=== PATIENT | male | born 1950 | race Caucasian/White ===

== ENCOUNTER → 2020-12-04 10:54 | Outpatient (CLI) | payer MEDICARE, OTHER, SELFPAY ==
[2020-12-04 21:04] LABS: Add Manual Diff / Slide Review NO; Basophils Absolute Auto 0 /uL (0-100); Basophils Percent Auto 0.6 % (0-2); Eosinophils Absolute Auto 100 /uL (0-450); Eosinophils Percent Auto 2.1 % (2-4); Hemoglobin 14.1 g/dL (13.5-17.5); Lymphocytes Absolute Auto 1500 /uL (1100-4500); Lymphocytes Percent Auto 28.9 % (25-40); Mean Corpuscular Hemoglobin 28.9 PG (26-34); Mean Corpuscular Volume 90.4 fL (80-100); Monocytes Absolute Auto 600 /uL (0-900); Monocytes Percent Auto 11.1 % (3-14); Neutrophils Absolute Auto 3000 /uL (1500-7000); Neutrophils Percent Auto 57.3 % (50-75); Platelet Count 152 X10^3/uL (150-400); Red Blood Cell Count 4.86 X10^6/uL (4.5-5.9); White Blood Cell Count 5.2 X10^3/uL (4.5-11.0)
[2020-12-05 03:20] LABS: Alanine Aminotransferase 32 IU/L (<50); Albumin 4.1 g/dL (3.5-5.0); Albumin Globulin Ratio 1.5 (1.0-2.8); Alkaline Phosphatase 50 U/L (38-126); Aspartate Aminotransferase 85 IU/L (17-59); BUN Creatinine Ratio 17.4 (6-22); Bilirubin Total 0.3 mg/dL (0.2-1.3); Blood Urea Nitrogen 25 mg/dL (9-20); Calcium 9.6 mg/dL (8.4-10.2); Carbon Dioxide 30 mmol/L (22-32); Chloride 102 mmol/L (98-107); Estimated Glomerular Filt Rate 48.8 mL/min (>60); Globulin 2.7 g/dL (1.7-4.1); Glucose 77 mg/dL (80-110); HEMOLYSIS < 15 (0-50); Potassium 4.4 mmol/L (3.4-5.1); Sodium 138 mmol/L (137-145); Total Protein 6.8 g/dL (6.3-8.2)
[2020-12-05 03:51] LABS: Cortisol Random 9.26 ug/dL
[2020-12-07 21:14] LABS: Estradiol, Sensitive 17.9 pg/mL (8.0-35.0)
[2020-12-11 08:36] LABS: Testosterone Free 24.34 ng/dL (5.00-21.00); Testosterone Total 811.3 ng/dL (264.0-916.0)
[2020-12-17 11:29] LABS: Matrix metalloprot 9 295 ng/mL (.)
== END ==
PROVIDERS: Family Provider Family Medicine; PCP Naturopath; Visit Provider Naturopath
DX: C90.00 Multiple myeloma not having achieved remission (principal); D64.9 Anemia, unspecified; R79.89 Other specified abnormal findings of blood chemistry; Z94.84 Stem cells transplant status
CPT/HCPCS: 80053; 82533; 82670; 82679; 82777; 83520; 84402; 84403; 84588; 85025

== ENCOUNTER → 2020-12-05 15:38 | Outpatient (CLI) | payer MEDICARE, OTHER, SELFPAY ==
[2020-12-09 13:09] LABS: Zinc,RBC 1717 ug/dL (878-1660)
== END ==
PROVIDERS: Family Provider Family Medicine; Visit Provider Naturopath
DX: C90.00 Multiple myeloma not having achieved remission (principal)
CPT/HCPCS: 84630

== ENCOUNTER → 2021-02-14 09:11 | Outpatient (CLI) | payer MEDICARE, OTHER, SELFPAY ==
[2021-02-14 19:44] LABS: Add Manual Diff / Slide Review NO; Basophils Absolute Auto 0 /uL (0-100); Basophils Percent Auto 0.2 % (0-2); Eosinophils Absolute Auto 100 /uL (0-450); Eosinophils Percent Auto 2.7 % (2-4); Hematocrit 45.1 % (41-53); Hemoglobin 14.7 g/dL (13.5-17.5); Lymphocytes Absolute Auto 2000 /uL (1100-4500); Lymphocytes Percent Auto 40.4 % (25-40); Mean Corpuscular HGB Conc 32.5 % (30-36); Mean Corpuscular Hemoglobin 29.2 PG (26-34); Mean Corpuscular Volume 89.8 fL (80-100); Monocytes Absolute Auto 400 /uL (0-900); Monocytes Percent Auto 7.4 % (3-14); Neutrophils Absolute Auto 2500 /uL (1500-7000); Neutrophils Percent Auto 49.3 % (50-75); Platelet Count 168 X10^3/uL (150-400); Red Blood Cell Count 5.02 X10^6/uL (4.5-5.9)
[2021-02-14 19:52] LABS: Alanine Aminotransferase 48 IU/L (<50); Albumin 4.1 g/dL (3.5-5.0); Albumin Globulin Ratio 1.7 (1.0-2.8); Alkaline Phosphatase 47 U/L (38-126); Aspartate Aminotransferase 44 IU/L (17-59); BUN Creatinine Ratio 13.3 (6-22); Bilirubin Total 0.4 mg/dL (0.2-1.3); Blood Urea Nitrogen 20 mg/dL (9-20); Calcium 9.3 mg/dL (8.4-10.2); Carbon Dioxide 27 mmol/L (22-32); Chloride 103 mmol/L (98-107); Estimated Glomerular Filt Rate 46.5 mL/min (>60); Globulin 2.4 g/dL (1.7-4.1); Glucose 82 mg/dL (80-110); HEMOLYSIS < 15 (0-50); Sodium 137 mmol/L (137-145); Total Protein 6.5 g/dL (6.3-8.2)
[2021-02-18 07:14] LABS: Cystatin C 1.17 mg/L (0.62-1.16)
[2021-02-19 11:18] LABS: Estradiol, Sensitive 32.5 pg/mL (8.0-35.0)
[2021-02-20 17:08] LABS: Percent Free Testosterone 3.65 % (1.50-4.20); Testosterone Free 41.46 ng/dL (5.00-21.00); Testosterone Total 1135.9 ng/dL (264.0-916.0)
[2021-02-24 11:28] LABS: Galectin -3 16.5
== END ==
PROVIDERS: Naturopath; Family Provider Family Medicine; PCP Physician Assistant
DX: E29.1 Testicular hypofunction (principal); R79.89 Other specified abnormal findings of blood chemistry; R53.83 Other fatigue; N40.1 Benign prostatic hyperplasia with lower urinary tract symptoms; R53.0 Neoplastic (malignant) related fatigue
CPT/HCPCS: 80053; 82610; 82670; 82679; 82777; 84402; 84403; 85025

== ENCOUNTER → 2021-07-04 09:27 | Outpatient (CLI) | payer MEDICARE, OTHER, SELFPAY ==
[2021-07-04 19:44] LABS: Add Manual Diff / Slide Review NO; Basophils Absolute Auto 0 /uL (0-100); Basophils Percent Auto 0.4 % (0-2); Eosinophils Absolute Auto 100 /uL (0-450); Eosinophils Percent Auto 2.8 % (2-4); Hematocrit 46.7 % (41-53); Hemoglobin 15.2 g/dL (13.5-17.5); Lymphocytes Absolute Auto 1700 /uL (1100-4500); Lymphocytes Percent Auto 35.8 % (25-40); Mean Corpuscular HGB Conc 32.6 % (30-36); Mean Corpuscular Hemoglobin 29.1 PG (26-34); Mean Corpuscular Volume 89.3 fL (80-100); Monocytes Absolute Auto 500 /uL (0-900); Monocytes Percent Auto 10.1 % (3-14); Neutrophils Absolute Auto 2400 /uL (1500-7000); Neutrophils Percent Auto 50.9 % (50-75); Platelet Count 176 X10^3/uL (150-400); Red Blood Cell Count 5.23 X10^6/uL (4.5-5.9); Red Cell Distribution Width 14.9 % (11.6-14.8); White Blood Cell Count 4.7 X10^3/uL (4.5-11.0)
[2021-07-04 20:01] LABS: Alanine Aminotransferase 26 IU/L (<50); Albumin 4.4 g/dL (3.5-5.0); Albumin Globulin Ratio 1.6 (1.0-2.8); Alkaline Phosphatase 44 U/L (38-126); Aspartate Aminotransferase 31 IU/L (17-59); BUN Creatinine Ratio 15.2 (6-22); Bilirubin Total 0.4 mg/dL (0.2-1.3); Blood Urea Nitrogen 21 mg/dL (9-20); Calcium 9.8 mg/dL (8.4-10.2); Carbon Dioxide 32 mmol/L (22-32); Chloride 100 mmol/L (98-107); Estimated Glomerular Filt Rate 51.1 mL/min (>60); Globulin 2.7 g/dL (1.7-4.1); Glucose 51 mg/dL (80-110); HEMOLYSIS 17 (0-50); Potassium 4.4 mmol/L (3.4-5.1); Sodium 140 mmol/L (137-145); Total Protein 7.1 g/dL (6.3-8.2)
[2021-07-08 10:22] LABS: PSA Free % 46.1 % (.); PSA, Total 1.8 ng/mL (0.0-4.0)
[2021-07-10 14:45] LABS: Galectin -3 16.8
[2021-07-10 15:01] LABS: Percent Free Testosterone 2.84 % (1.50-4.20); Testosterone Free 21.77 ng/dL (5.00-21.00); Testosterone Total 766.4 ng/dL (264.0-916.0)
[2021-07-11 05:24] LABS: Estradiol, Sensitive 31.3 pg/mL (8.0-35.0)
== END ==
PROVIDERS: Naturopath; Family Provider Family Medicine; PCP Physician Assistant
DX: E29.1 Testicular hypofunction (principal); G47.00 Insomnia, unspecified; N40.1 Benign prostatic hyperplasia with lower urinary tract symptoms; R53.83 Other fatigue; R53.0 Neoplastic (malignant) related fatigue; E34.9 Endocrine disorder, unspecified; R20.3 Hyperesthesia; E27.40 Unspecified adrenocortical insufficiency; G62.9 Polyneuropathy, unspecified; J30.2 Other seasonal allergic rhinitis; R68.82 Decreased libido; C90.01 Multiple myeloma in remission
CPT/HCPCS: 80053; 82670; 82679; 82777; 84153; 84154; 84402; 84403; 85025

== ENCOUNTER → 2021-07-25 12:07 | Outpatient (CLI) | payer MEDICARE, OTHER, SELFPAY ==
[2021-07-25 18:37] LABS: Add Manual Diff / Slide Review NO; Basophils Absolute Auto 100 /uL (0-100); Eosinophils Absolute Auto 100 /uL (0-450); Hematocrit 40.1 % (41-53); Hemoglobin 13.6 g/dL (13.5-17.5); Lymphocytes Absolute Auto 1700 /uL (1100-4500); Lymphocytes Percent Auto 33.6 % (25-40); Mean Corpuscular HGB Conc 33.9 % (30-36); Mean Corpuscular Hemoglobin 29.8 PG (26-34); Mean Corpuscular Volume 87.9 fL (80-100); Monocytes Absolute Auto 700 /uL (0-900); Monocytes Percent Auto 13.5 % (3-14); Neutrophils Absolute Auto 2500 /uL (1500-7000); Neutrophils Percent Auto 49.9 % (50-75); Platelet Count 139 X10^3/uL (150-400); Red Blood Cell Count 4.56 X10^6/uL (4.5-5.9); Red Cell Distribution Width 14.3 % (11.6-14.8); White Blood Cell Count 5.1 X10^3/uL (4.5-11.0)
[2021-07-25 18:57] LABS: Alanine Aminotransferase 18 IU/L (<50); Albumin 3.8 g/dL (3.5-5.0); Albumin Globulin Ratio 1.7 (1.0-2.8); Alkaline Phosphatase 37 U/L (38-126); Aspartate Aminotransferase 25 IU/L (17-59); Bilirubin Total 0.4 mg/dL (0.2-1.3); Blood Urea Nitrogen 17 mg/dL (9-20); Calcium 8.9 mg/dL (8.4-10.2); Carbon Dioxide 32 mmol/L (22-32); Chloride 95 mmol/L (98-107); Estimated Glomerular Filt Rate 59.5 mL/min (>60); Globulin 2.3 g/dL (1.7-4.1); Glucose 112 mg/dL (80-110); HEMOLYSIS < 15 (0-50); Sodium 131 mmol/L (137-145); Total Protein 6.1 g/dL (6.3-8.2)
[2021-07-27 10:35] LABS: IGA 34 mg/dL (61-437); IGG 666 mg/dL (603-1613); IGM 45 mg/dL (20-172)
[2021-07-28 17:09] LABS: Free Kappa Lt Chains, Serum 14.6 mg/L (3.3-19.4); Free Lambda Lt Chains,Serum 9.1 mg/L (5.7-26.3)
[2021-07-29 15:43] LABS: Albumin 3.6 g/dL (2.9-4.4); Alpha-1-Globulin 0.2 g/dL (0.0-0.4); Alpha-2-Globulin 0.6 g/dL (0.4-1.0); Gamma Globulin 0.6 g/dL (0.4-1.8); Globulin Total 2.3 g/dL (2.2-3.9); Protein, Total 5.9 g/dL (6.0-8.5)
== END ==
PROVIDERS: Family Provider Family Medicine; PCP Physician Assistant; Visit Provider Internal Medicine
DX: C90.00 Multiple myeloma not having achieved remission (principal)
CPT/HCPCS: 80053; 82784; 83883; 84155; 84165; 85025

== ENCOUNTER → 2021-08-04 12:25 | Outpatient (CLI) | payer MEDICARE, OTHER, SELFPAY ==
[2021-08-04 19:26] LABS: Cholesterol 219 mg/dL (140-199); HDL Cholesterol 44 mg/dL (40-60); LDL Cholesterol Calculated 164 mg/dL (<100); Triglycerides 54 mg/dL (35-150)
== END ==
PROVIDERS: Family Provider Family Medicine; PCP Family Medicine; Visit Provider Physician Assistant
DX: H02.60 Xanthelasma of unspecified eye, unspecified eyelid (principal)
CPT/HCPCS: 80061

== ENCOUNTER → 2022-05-13 09:53 | Outpatient (CLI) | payer MEDICARE, OTHER, SELFPAY ==
[2022-05-13 22:44] LABS: Free T3, Triiodothyronine Free 4.99 pg/mL (2.77-5.27)
[2022-05-13 22:57] LABS: Thyroid Stimulating Hormone 0.767 uIU/mL (0.47-4.68)
[2022-05-14 22:38] LABS: Triiodothyronine T3 Total 108 ng/dL (71-180)
[2022-05-19 17:45] LABS: Triiodothyronine T3 Reverse 15.3 ng/dL (9.2-24.1)
== END ==
PROVIDERS: Family Provider Family Medicine; PCP Family Medicine
DX: D64.9 Anemia, unspecified (principal); R53.83 Other fatigue
CPT/HCPCS: 84439; 84443; 84480; 84481; 84482

== ENCOUNTER → 2022-12-03 14:38 | Outpatient (CLI) | payer MEDICARE, OTHER, SELFPAY ==
[2022-12-03 20:28] LABS: Add Manual Diff / Slide Review NO; Basophils Absolute Auto 100 /uL (0-100); Basophils Percent Auto 0.9 % (0-2); Eosinophils Absolute Auto 100 /uL (0-450); Eosinophils Percent Auto 1.6 % (2-4); Hematocrit 43.6 % (41-53); Hemoglobin 14.8 g/dL (13.5-17.5); Lymphocytes Absolute Auto 1300 /uL (1100-4500); Lymphocytes Percent Auto 21.3 % (25-40); Mean Corpuscular HGB Conc 33.9 % (30-36); Mean Corpuscular Hemoglobin 30.1 PG (26-34); Mean Corpuscular Volume 88.8 fL (80-100); Monocytes Absolute Auto 600 /uL (0-900); Monocytes Percent Auto 9.1 % (3-14); Neutrophils Absolute Auto 4200 /uL (1500-7000); Neutrophils Percent Auto 67.1 % (50-75); Platelet Count 164 X10^3/uL (150-400); Red Blood Cell Count 4.92 X10^6/uL (4.5-5.9); Red Cell Distribution Width 13.7 % (11.6-14.8); White Blood Cell Count 6.2 X10^3/uL (4.5-11.0)
[2022-12-03 20:52] LABS: Alanine Aminotransferase 27 IU/L (<50); Albumin Globulin Ratio 1.5 (1.0-2.8); Alkaline Phosphatase 63 U/L (38-126); Aspartate Aminotransferase 28 IU/L (17-59); BUN Creatinine Ratio 17.2 (6-22); Bilirubin Total 0.3 mg/dL (0.2-1.3); Blood Urea Nitrogen 22 mg/dL (9-20); Carbon Dioxide 29 mmol/L (22-32); Chloride 99 mmol/L (98-107); Estimated Glomerular Filt Rate > 60 mL/min (>60); Globulin 2.6 g/dL (1.7-4.1); Glucose 85 mg/dL (80-110); HEMOLYSIS 19 (0-50); Sodium 136 mmol/L (137-145); Total Protein 6.6 g/dL (6.3-8.2)
[2022-12-08 15:12] LABS: Albumin 3.5 g/dL (2.9-4.4); Alpha-1-Globulin 0.3 g/dL (0.0-0.4); Alpha-2-Globulin 0.8 g/dL (0.4-1.0); Gamma Globulin 0.8 g/dL (0.4-1.8); Globulin Total 2.8 g/dL (2.2-3.9); Immunoglobulin A, Serum 47 mg/dL (61-437); Immunoglobulin G,Serum 769 mg/dL (603-1613); Immunoglobulin M, Serum 71 mg/dL (20-172); Protein, Total 6.3 g/dL (6.0-8.5)
== END ==
PROVIDERS: Family Provider Family Medicine; PCP Family Medicine
DX: C90.00 Multiple myeloma not having achieved remission (principal)
CPT/HCPCS: 80053; 82784; 84155; 84165; 85025; 86334

== ENCOUNTER → 2023-02-03 09:46 | Outpatient (CLI) | payer MEDICARE, OTHER, SELFPAY ==
[2023-02-03 19:51] LABS: Add Manual Diff / Slide Review NO; Basophils Absolute Auto 0 /uL (0-100); Basophils Percent Auto 0.8 % (0-2); Eosinophils Absolute Auto 100 /uL (0-450); Eosinophils Percent Auto 1.2 % (2-4); Hematocrit 44.5 % (41-53); Hemoglobin 14.9 g/dL (13.5-17.5); Lymphocytes Absolute Auto 1400 /uL (1100-4500); Lymphocytes Percent Auto 25.3 % (25-40); Mean Corpuscular HGB Conc 33.4 % (30-36); Mean Corpuscular Hemoglobin 29.8 PG (26-34); Mean Corpuscular Volume 89.2 fL (80-100); Monocytes Absolute Auto 400 /uL (0-900); Monocytes Percent Auto 7.3 % (3-14); Neutrophils Absolute Auto 3700 /uL (1500-7000); Neutrophils Percent Auto 65.4 % (50-75); Platelet Count 139 X10^3/uL (150-400); Red Blood Cell Count 4.99 X10^6/uL (4.5-5.9); Red Cell Distribution Width 13.5 % (11.6-14.8); White Blood Cell Count 5.6 X10^3/uL (4.5-11.0)
[2023-02-03 19:58] LABS: Alanine Aminotransferase 43 IU/L (<50); Albumin 4.2 g/dL (3.5-5.0); Albumin Globulin Ratio 1.4 (1.0-2.8); Alkaline Phosphatase 61 U/L (38-126); Aspartate Aminotransferase 62 IU/L (17-59); BUN Creatinine Ratio 14.2 (6-22); Bilirubin Total 0.5 mg/dL (0.2-1.3); Blood Urea Nitrogen 17 mg/dL (9-20); C-Reactive Protein Quant < 0.5 mg/dL (<1.0); Calcium 9.3 mg/dL (8.4-10.2); Carbon Dioxide 30 mmol/L (22-32); Chloride 100 mmol/L (98-107); Cholesterol 234 mg/dL (140-199); Estimated Glomerular Filt Rate > 60 mL/min (>60); Glucose 84 mg/dL (80-110); HDL Cholesterol 47 mg/dL (40-60); HEMOLYSIS 24 (0-50); LDL Cholesterol Calculated 170 mg/dL (<100); Potassium 3.9 mmol/L (3.4-5.1); Sodium 137 mmol/L (137-145); Total Protein 7.2 g/dL (6.3-8.2); Triglycerides 85 mg/dL (35-150)
[2023-02-03 20:03] LABS: High Sensitivity CRP - Cardiac 1.5 mg/L (1.0-3.0)
[2023-02-03 20:15] LABS: Vitamin D 25 Hydroxy (D3) 58.9 ng/mL (30.0-100.0)
[2023-02-03 21:20] LABS: Erythrocyte Sedimentation Rate 3 MM/HR (0-15)
[2023-02-05 04:31] LABS: Apolipoprotein A-1 133 mg/dL (101-178); Apolipoprotein B 115 mg/dL (<90); Apolipoprotein B/A1 Ratio 0.9 ratio (0.0-0.7)
[2023-02-06 12:10] LABS: PSA Free % 39.3 % (.); PSA, Total 1.4 ng/mL (0.0-4.0)
[2023-02-10 11:16] LABS: Percent Free Testosterone 2.35 % (1.50-4.20); Testosterone Free 14.09 ng/dL (5.00-21.00); Testosterone Total 599.7 ng/dL (264.0-916.0)
[2023-02-18 10:54] LABS: Galectin -3 18.9
[2023-02-26 10:41] LABS: Estradiol, Sensitive 25.7
== END ==
PROVIDERS: Family Provider Family Medicine; PCP Family Medicine; Visit Provider Naturopath
DX: N18.31 Chronic kidney disease, stage 3a (principal); E29.1 Testicular hypofunction; C90.01 Multiple myeloma in remission; E27.40 Unspecified adrenocortical insufficiency; E34.9 Endocrine disorder, unspecified; G47.00 Insomnia, unspecified; G62.9 Polyneuropathy, unspecified; J30.2 Other seasonal allergic rhinitis; M65.4 Radial styloid tenosynovitis [de Quervain]; N40.1 Benign prostatic hyperplasia with lower urinary tract symptoms; R20.3 Hyperesthesia; R53.0 Neoplastic (malignant) related fatigue; R53.82 Chronic fatigue, unspecified; R53.83 Other fatigue; R68.82 Decreased libido
CPT/HCPCS: 80053; 80061; 82172; 82306; 82627; 82670; 82679; 82777; 84153; 84154; 84402; 84403; 85025; 85651; 86140

== ENCOUNTER → 2023-10-06 14:39 | Outpatient (CLI) | payer MEDICARE, OTHER, SELFPAY ==
[2023-10-06 19:55] LABS: Platelet Count 135 X10^3/uL (150-400)
[2023-10-06 20:03] LABS: Alanine Aminotransferase 30 IU/L (<50); Aspartate Aminotransferase 33 IU/L (17-59); Gamma Glutamyl Transpeptidase 24 U/L (15-73); Lactate Dehydrogenase 169 U/L (120-246)
[2023-10-06 20:09] LABS: Erythrocyte Sedimentation Rate 2 MM/HR (0-15)
[2023-10-06 20:38] LABS: Ferritin 23 ng/mL (18-464)
[2023-10-11 16:07] LABS: Vascular Endothelial Growth Fa 92 pg/mL (0-115)
[2023-10-12 06:34] LABS: LDH 164 IU/L (121-224)
[2023-10-15 15:12] LABS: Percent Free Testosterone 3.92 % (1.50-4.20); Testosterone Free 22.85 ng/dL (5.00-21.00); Testosterone Total 582.8 ng/dL (264.0-916.0)
== END ==
PROVIDERS: Family Provider Family Medicine; PCP Family Medicine; Visit Provider Naturopath
DX: D75.839 Thrombocytosis, unspecified (principal); R74.8 Abnormal levels of other serum enzymes; E78.5 Hyperlipidemia, unspecified
CPT/HCPCS: 82627; 82670; 82728; 82977; 83520; 83615; 83625; 84402; 84403; 84450; 84460; 85049; 85651

== ENCOUNTER → 2023-11-16 12:16 | Outpatient (CLI) | payer MEDICARE, OTHER, SELFPAY | PROVIDERS: Family Provider Family Medicine; PCP Family Medicine; Visit Provider Physician Assistant | DX: R35.0 Frequency of micturition (principal) | CPT/HCPCS: 87086 ==

== ENCOUNTER → 2023-12-10 12:41 | Outpatient (CLI) | payer MEDICARE, OTHER, SELFPAY | PROVIDERS: Family Provider Family Medicine; PCP Family Medicine | DX: C90.00 Multiple myeloma not having achieved remission (principal) | CPT/HCPCS: 84156; 84166 ==

== ENCOUNTER → 2024-03-16 13:36 | Outpatient (CLI) | payer MEDICARE, OTHER, SELFPAY ==
[2024-03-16 20:38] LABS: High Sensitivity CRP - Cardiac 7.4 mg/L (1.0-3.0)
[2024-03-16 20:44] LABS: Erythrocyte Sedimentation Rate 7 MM/HR (0-15)
[2024-03-19 18:38] LABS: Cystatin C 1.14 mg/L (0.78-1.15)
[2024-03-20 15:40] LABS: IGF-1 194 ng/mL (53-222)
[2024-03-21 22:36] LABS: LDH 144 IU/L (121-224)
[2024-03-24 12:41] LABS: Vascular Endothelial Growth Fa 43 pg/mL (0-115)
== END ==
PROVIDERS: Family Provider Family Medicine; PCP Family Medicine; Visit Provider Naturopath
DX: E78.5 Hyperlipidemia, unspecified (principal); D75.839 Thrombocytosis, unspecified; C90.01 Multiple myeloma in remission; E29.1 Testicular hypofunction; M65.4 Radial styloid tenosynovitis [de Quervain]; N40.1 Benign prostatic hyperplasia with lower urinary tract symptoms; G47.00 Insomnia, unspecified; R53.83 Other fatigue; R74.8 Abnormal levels of other serum enzymes; E34.9 Endocrine disorder, unspecified; N18.2 Chronic kidney disease, stage 2 (mild); R20.3 Hyperesthesia; R53.0 Neoplastic (malignant) related fatigue; R53.82 Chronic fatigue, unspecified; E27.40 Unspecified adrenocortical insufficiency; R68.82 Decreased libido; J30.2 Other seasonal allergic rhinitis; G62.9 Polyneuropathy, unspecified
CPT/HCPCS: 82610; 83520; 83615; 83625; 84305; 85651; 86140

== ENCOUNTER → 2024-05-10 11:28 | Outpatient (CLI) | payer MEDICARE, OTHER, SELFPAY ==
--- NOTE | 2024-05-10 11:30 | DI.US.S_ITS ---
PROCEDURE: US ABD AORTA ANEURYSM SCREEN INDICATIONS: THORACIC ASCENDING ANEURYSM CT 2022. AAA SCREENING. TECHNIQUE: Real-time scanning was performed of the aorta and proximal common iliac arteries, with image documentation. Twelve images COMPARISON: None. FINDINGS: Aorta: Abdominal aorta is normal in caliber throughout its length: Proximal aorta: Approximately 2.0 cm diameter. Mid aorta: 2.1 cm Distal aorta: 2.0 cm Iliacs: Proximal common iliac arteries are normal in caliber: Right common iliac artery 1.2 cm Left common iliac artery 1.5 cm IMPRESSION: No ultrasound evidence of abdominal aortic aneurysm. Dictated by: Kleber Baker M.D. on 05/10/2024 at 17:43 Approved by: Kleber Baker M.D. on 05/10/2024 at 17:45
== END ==
LOC: US 11:29
PROVIDERS: Family Provider Family Medicine; PCP Family Medicine; Referring Provider Family Medicine; Visit Provider Family Medicine
DX: I71.40 Abdominal aortic aneurysm, without rupture, unspecified (principal)
CPT/HCPCS: 76706

== ENCOUNTER → 2024-06-23 11:30 | Outpatient (CLI) | payer MEDICARE, OTHER, SELFPAY | PROVIDERS: Family Provider Family Medicine; PCP Family Medicine; Referring Provider Family Medicine; Visit Provider Family Medicine | DX: Z12.5 Encounter for screening for malignant neoplasm of prostate (principal) | CPT/HCPCS: G0103 ==

== ENCOUNTER → 2024-07-18 14:46 | Outpatient (CLI) | payer MEDICARE, OTHER, SELFPAY ==
--- NOTE | 2024-07-18 14:47 | DI.ECHO.S_ITS ---
[facility] : : [id number] : : [place], : : [place] [address] : : Phone: [phone] Echocardiogram Report + + :Name: SUSAN MAGALLANES Study Date: 07/18/2024 Height: 69 in : [id number] ReadingLocation: Weight: 182 lb : : Gender: Male BSA: 2.0 m2 : :: 1950 Age: 74 yrs BP: 145/83 mmHg: :Reason For Study: THORACIC ANEURYSM : :Ordering Physician: MICHELLE, : :JUAN Performed By: Cameron Ponce : :Referring: JUAN MARTINEZ : + + Interpretation Summary 1. Normal LV contractility. EF of 55-60%. No WMA. No LVH. Unable to comment on diastolic function. 2. Normal RV contractility. 3. Mild LAE. 4. Mild AI. 5. Trace to mild TR with estimated PSAP of 37 mmHg. 6. No obvious intracardiac shunts. 7. No obvious intracardiac masses/thrombi. 8. No hemodynamically significant pericardial effusion present. 9. Low right sided filling pressures. Conclusion: Normal biventricular systolic function with mild valvular regurgitation. Procedure: A two-dimensional transthoracic echocardiogram with color flow and Doppler was performed. The study quality was technically good. There is no prior echocardiogram noted for this patient. The patient was in normal sinus rhythm during the exam. Left Ventricle: The left ventricle is normal in size. There is normal left ventricular wall thickness. There is no ventricular septal defect visualized. The ejection fraction is estimated to be 55-60%. There are no focal wall motion abnormalities. Right Ventricle: The right ventricle is normal in size and function. Atria: The left atrium is mildly dilated. Right atrial size is normal. There is no Doppler evidence for an interatrial shunt. Mitral Valve: The mitral valve is normal in structure and function. There is trace mitral regurgitation. Aortic Valve: The aortic valve is trileaflet. The aortic valve opens well. There is mild aortic regurgitation. Tricuspid Valve: The tricuspid valve is normal in structure and function. There is mild tricuspid regurgitation. The right ventricular systolic pressure is estimated to be at least 27 mmHg based on an estimated right atrial pressure of 3 mm Hg. Pulmonic Valve: The pulmonic valve is normal in structure and function. There is trace pulmonic regurgitation. Great Vessels: The aortic root is normal size. The ascending aorta is mildly enlarged. The pulmonary artery is normal size. The IVC is of normal diameter and collapses greater than 50% with a sniff. This suggests a low right atrial pressure of 3 mm Hg. Pericardium/ Pleura There is no pericardial effusion. There is no pleural effusion. MMode/2D Measurements & Calculations LVIDd: 4.9 cm AoV Openin.0 cm LVIDs: 3.5 cm LVOT diam: 2.0 cm IVSd: 0.95 cm Ao root diam: 3.4 cm LVPWd: 0.97 cm asc Aorta Diam: 3.9 cm LV mi. diameter/BSA (cm/m^2): 2.5 Ao Arch Diam (Prox Trans): 2.5 cm LV sys. diameter/BSA (cm/m^2): 1.8 FS: 29.3 % EPSS: 1.0 cm LA A2 area: 22.9 cm2 RA long axis: 4.0 cm LA A4 area: 20.3 cm2 RA area: 14.4 cm2 LA length (vol): 5.4 cm RA vol: 44.3 ml LA vol: 73.8 ml RA : 22.3 ml/m2 LA vol index: 37.2 ml/m2 RVD1 (basal): 3.8 cm IVC diam: 2.0 cm RVD2 (mid): 3.6 cm TAPSE: 2.7 cm Doppler Measurements & Calculations Ao V2 max: 136.6 cm/sec LVOT Max Deion: 104.2 cm/sec Ao V2 mean: 102.5 cm/sec LV V1 max P.3 mmHg Ao V2 VTI: 30.8 cm LV V1 VTI: 26.0 cm Ao max P.5 mmHg Ao mean P.5 mmHg ROSITA(I,D): 2.7 cm2 AI P1/2t: 885.2 msec ROSITA(V,D): 2.4 cm2 AI dec slope: 127.2 cm/sec2 ROSITA indexed to BSA (cm^2/m^2): 1.4 sev ratio: 0.84 MV E max deion: 64.8 cm/sec MV dec time: 0.20 sec MV A max deoin: 73.8 cm/sec MV E/A: 0.88 Med Peak E' Deion: 6.5 cm/sec E/E' med: 9.9 Lat Peak E' Deion: 7.6 cm/sec E/E' lat: 8.5 E/e' average: 9.2 TR max deion: 239.8 cm/sec PA V2 max: 73.0 cm/sec TR max P.0 mmHg PA V2 mean: 50.7 cm/sec PA mean P.1 mmHg PA pr(Accel): 29.3 mmHg SV(LVOT): 83.2 ml Reading Physician:
== END ==
PROVIDERS: Family Provider Family Medicine; PCP Family Medicine; Referring Provider Family Medicine; Visit Provider Family Medicine
DX: I71.21 Aneurysm of the ascending aorta, without rupture (principal); I08.2 Rheumatic disorders of both aortic and tricuspid valves; I77.89 Other specified disorders of arteries and arterioles
CPT/HCPCS: 93306

== ENCOUNTER → 2024-09-25 13:22 | Outpatient (CLI) | payer MEDICARE, OTHER, SELFPAY ==
[2024-09-25 19:45] LABS: Add Manual Diff / Slide Review NO; Basophils Absolute Auto 0 /uL (0-100); Basophils Percent Auto 0.8 % (0-2); Eosinophils Absolute Auto 100 /uL (0-450); Eosinophils Percent Auto 1.7 % (2-4); Hematocrit 44.8 % (41-53); Hemoglobin 14.9 g/dL (13.5-17.5); Lymphocytes Absolute Auto 1500 /uL (1100-4500); Lymphocytes Percent Auto 27.1 % (25-40); Mean Corpuscular HGB Conc 33.3 % (30-36); Mean Corpuscular Volume 90.3 fL (80-100); Monocytes Absolute Auto 300 /uL (0-900); Monocytes Percent Auto 5.9 % (3-14); Neutrophils Absolute Auto 3500 /uL (1500-7000); Neutrophils Percent Auto 64.5 % (50-75); Platelet Count 152 X10^3/uL (150-400); Red Blood Cell Count 4.97 X10^6/uL (4.5-5.9); Red Cell Distribution Width 14.1 % (11.6-14.8); White Blood Cell Count 5.4 X10^3/uL (4.5-11.0)
[2024-09-25 19:56] LABS: Alanine Aminotransferase 46 IU/L (<50); Albumin 4.1 g/dL (3.5-5.0); Albumin Globulin Ratio 1.8 (1.0-2.8); Alkaline Phosphatase 54 U/L (38-126); Aspartate Aminotransferase 39 IU/L (17-59); BUN Creatinine Ratio 14.3 (6-22); Bilirubin Total 0.4 mg/dL (0.2-1.3); Blood Urea Nitrogen 19 mg/dL (9-20); Calcium 9.1 mg/dL (8.4-10.2); Carbon Dioxide 31 mmol/L (22-32); Chloride 101 mmol/L (98-107); Estimated Glomerular Filt Rate 57 mL/min (>60); Globulin 2.3 g/dL (1.7-4.1); Glucose 107 mg/dL (80-110); HEMOLYSIS < 15 (0-50); Potassium 4.4 mmol/L (3.4-5.1); Sodium 137 mmol/L (137-145); Total Protein 6.4 g/dL (6.3-8.2)
[2024-09-28 15:40] LABS: Albumin 3.5 g/dL (2.9-4.4); Alpha-1-Globulin 0.2 g/dL (0.0-0.4); Alpha-2-Globulin 0.7 g/dL (0.4-1.0); Globulin Total 2.8 g/dL (2.2-3.9); Immunoglobulin A, Serum 59 mg/dL (61-437); Immunoglobulin G,Serum 831 mg/dL (603-1613); Immunoglobulin M, Serum 87 mg/dL (15-143); Protein, Total 6.3 g/dL (6.0-8.5)
== END ==
PROVIDERS: Family Provider Family Medicine; PCP Family Medicine; Visit Provider Internal Medicine Hematology & Oncology
DX: C90.00 Multiple myeloma not having achieved remission (principal)
CPT/HCPCS: 80053; 82784; 83883; 84155; 84165; 85025; 86334

== ENCOUNTER → 2025-05-31 14:36 | Outpatient (CLI) | payer MEDICARE, OTHER, SELFPAY ==
[2025-05-31 18:55] LABS: Add Manual Diff / Slide Review NO; Hematocrit 45.0 % (41-53); Hemoglobin 15.4 g/dL (13.5-17.5); Lymphocytes Absolute Auto 1300 /uL (1100-4500); Mean Corpuscular HGB Conc 34.2 % (30-36); Mean Corpuscular Hemoglobin 30.5 PG (26-34); Mean Corpuscular Volume 89.2 fL (80-100); Platelet Count 144 X10^3/uL (150-400)
[2025-05-31 19:25] LABS: Alanine Aminotransferase 32 IU/L (<50); Albumin 4.4 g/dL (3.5-5.0); Albumin Globulin Ratio 1.6 (1.0-2.8); Alkaline Phosphatase 70 U/L (38-126); Blood Urea Nitrogen 17 mg/dL (9-20); Calcium 9.6 mg/dL (8.4-10.2); Carbon Dioxide 29 mmol/L (22-32); Chloride 97 mmol/L (98-107); Estimated Glomerular Filt Rate 58 mL/min (>60); Globulin 2.7 g/dL (1.7-4.1); Glucose 123 mg/dL (70-99); HEMOLYSIS < 15 (0-50); Potassium 4.2 mmol/L (3.4-5.1); Sodium 135 mmol/L (137-145); Total Protein 7.1 g/dL (6.3-8.2)
[2025-06-03 06:13] LABS: Free Kappa Lt Chains, Serum 14.7 mg/L (3.3-19.4); Free Lambda Lt Chains,Serum 11.1 mg/L (5.7-26.3)
[2025-06-05 14:40] LABS: Immunoglobulin G,Serum 931 mg/dL (603-1613)
[2025-06-05 15:12] LABS: Albumin 4.1 g/dL (2.9-4.4); Alpha-1-Globulin 0.2 g/dL (0.0-0.4); Alpha-2-Globulin 0.7 g/dL (0.4-1.0); Gamma Globulin 0.9 g/dL (0.4-1.8)
== END ==
PROVIDERS: PCP Family Medicine; Visit Provider Internal Medicine Hematology & Oncology
DX: C90.00 Multiple myeloma not having achieved remission (principal)
CPT/HCPCS: 80053; 82784; 83883; 84155; 84165; 85025; 86334

== ENCOUNTER → 2025-07-11 13:02 | Outpatient (CLI) | payer MEDICARE, OTHER, SELFPAY ==
[2025-07-11 19:04] LABS: Appearance Urine UA CLEAR; Bilirubin Urine UA NEGATIVE (NEGATIVE); Color Urine UA YELLOW; Glucose Urine UA NEGATIVE (Negative); Ketones Urine UA NEGATIVE (NEGATIVE); Leukocyte Esterase Urine UA NEGATIVE (NEGATIVE); Nitrite Urine UA NEGATIVE (Negative); Occult Blood Urine UA NEGATIVE (Negative); Protein Urine UA NEGATIVE (Negative); Specific Gravity Urine UA 1.010 (1.000-1.035); Urobilinogen Urine UA 0.2 E.U./dL (0.2); pH Urine UA 7.0 (4.5-8.0)
[2025-07-11 19:18] LABS: Culture Indicated Urine Cult Not Indicated
== END ==
PROVIDERS: PCP Family Medicine; Visit Provider Family Medicine
DX: Z12.5 Encounter for screening for malignant neoplasm of prostate (principal); R35.1 Nocturia
CPT/HCPCS: 81001; G0103